=== PATIENT | female | born 1965 | race Caucasian/White ===

== ENCOUNTER 2016-11-06 15:57 | Emergency (ER) | payer SELFPAY ==
[~2016-11-06] VITALS: Ht 167.6 cm; Wt 67.5 kg
[~2016-11-06 15:57] MED LIST: DENIES MEDS
[2016-11-06 16:03] VITALS: Ht 167.6 cm; Wt 67.5 kg
[2016-11-06] MEDS ORDERED: IBUP-1542 PO (17:28)
[2016-11-06] MEDS ORDERED: CIPR500T4 PO (17:28)
[2016-11-06] MEDS ORDERED: traMADol 50 MG TAB PO ONE (17:30)
[2016-11-06] MEDS ORDERED: DIPHTH/TET/ACEL PERTUSS (ADULT) 0.5 ML VIAL IM* ONE (17:30)
[2016-11-06] MEDS ORDERED: BACITRACIN 0.9 GM OINT TOP ONE (17:30)
--- NOTE | 2016-11-06 17:44 | ERD ---
ER Documentation Chief Complaint Date/Time DATE: 11/06/16 TIME: 17:40 Chief Complaint Complains of foot pain / puncture wound since this am HPI 51-year-old female comes in with a puncture made from a piece of metal that she stepped on with that she this morning about 4 5 hours ago. She complains of a puncture wound to the bottom of her foot, tissue describes sharp pain. She states that she was able to remove the foreign body out fully. Patient states that she does not recall her last tetanus shot. ROS All systems reviewed and are negative except as per history of present illness. Medications Home Meds Active Scripts Ibuprofen* (Motrin*) 600 Mg Tab, 600 MG PO Q6, #30 TAB Prov:ASHLEY DAMON PA-C 11/06/16 Ciprofloxacin Hcl* (Ciprofloxacin Hcl*) 500 Mg Tablet, 500 MG PO BID for 3 Days , TAB Prov:ASHLEY DAMON PA-C 11/06/16 Reported Medications [Denies Meds] No Conflict Check 12/25/09 Allergies Allergies: Coded Allergies: No Known Drug Allergy (Verified Allergy, Mild, 12/25/09) PMhx/Soc Medical and Surgical Hx: pt denies Medical Hx History of Surgery: Yes (4X C SECTION) Anesthesia Reaction: No Hx Neurological Disorder: No Hx Respiratory Disorders: No Hx Cardiac Disorders: No Hx Psychiatric Problems: No Hx Miscellaneous Medical Probl: No Hx Alcohol Use: No Hx Substance Use: No Hx Tobacco Use: Yes (3 CIGARETTE DAILY) Smoking Status: Current every day smoker Physical Exam Vitals Vital Signs Date Time Temp Pulse Resp B/P Pulse Ox O2 Delivery O2 Flow Rate FiO2 11/06/16 16:03 98.3 70 20 137/67 98 Physical Exam General: Well-developed, well-nourished. The patient appears in no acute distress. HEENT: Head is normocephalic, atraumatic. No scleral icterus. Neck: Supple. Nontender. Lungs: Clear to auscultation. Normal air movement. Heart: Regular rate and rhythm. S1 and S2 are normal. No murmurs, gallops, or rubs. Abdomen: Nondistended. Extremities: No clubbing or cyanosis. Moving extremities x 4. No weakness. Neurologic: Alert and oriented 3. No focal deficits. Normal speech and gait. Skin: Of her left foot, there is a superficial opening, there is a puncture wound of approximately 45 mm, no active bleeding, no foreign body appreciated. Results 24 hrs Current Medications Medications (Trade) Dose Ordered Sig/Elvia Route PRN Reason Start Time Stop Time Status Last Admin Dose Admin Diphtheria/ Tetanus/Acell Pertussis (Adacel) 0.5 ml ONCE ONCE IM* 11/06/16 17:30 11/06/16 17:31 DC Bacitracin (Bacitracin Oint (Ud)) 1 applic ONCE ONCE TOP 11/06/16 17:30 11/06/16 17:31 DC Tramadol HCl (Ultram) 50 mg ONCE ONCE PO 11/06/16 17:30 11/06/16 17:31 DC Procedures/MDM Female comes in with a puncture wound to the bottom of the left foot, I doubt retained foreign body, doubt tendon rupture, fracture. This is a superficial injury from a piece of metal that she was able to move fully. Because the patient was wearing shoes, she will be covered with antibiotics. Departure Diagnosis: Primary Impression: Puncture wound Condition: Good Patient Instructions: Puncture Wound, Foot ASHLEY DAMON PA-C Nov 06, 2016 17:44
== END 2016-11-06 18:12 | disposition home or self-care (01) ==
LOC: FTE 15:57
DX: S91.332A Puncture wound without foreign body, left foot, initial encounter (principal); F17.210 Nicotine dependence, cigarettes, uncomplicated; W45.8XXA Other foreign body or object entering through skin, initial encounter; Y92.9 Unspecified place or not applicable
CPT/HCPCS: 90471; 90715

== ENCOUNTER 2016-11-12 13:52 | Emergency (ER) | payer MEDICAID ==
[~2016-11-12] VITALS: Ht 162.6 cm; Wt 65.0 kg
[~2016-11-12 13:52] MED LIST changes: +CIPR500T4 PO; +IBUP-1542 PO
[2016-11-12 13:53] VITALS: Ht 162.6 cm; Wt 65.0 kg
[2016-11-12] MEDS ORDERED: LIDOCAINE 1% (MDV) 20 ML INJ SC ONE (15:30)
[2016-11-12] MEDS ORDERED: CEPH-443 PO (16:02)
[2016-11-12] MEDS ORDERED: IBUP-1542 PO (16:02)
--- NOTE | 2016-11-13 10:18 | ERD ---
ER Documentation Chief Complaint Date/Time DATE: 11/13/16 TIME: 10:08 Chief Complaint wound recheck to left foot HPI 51-year-old female presented ED for wound check after she punctured the left foot 1 week ago. She stepped on a piece metal bar at home. She did pull off the bar by herself before arriving to the ED on the previous visit. She was given prescription of Cipro by the ED provider at that time. However, she did not fill her antibiotic medication because the pharmacy could not come from her Medi-Jack status. She said that she had received confirmation of her Medi-[facility] status, she will go fill her medication today. Meanwhile, patient reports pain has gotten worse on her left foot. She now has an area of redness and swelling on the dorsal aspect of the left foot. Denies fever or chills. ROS All systems reviewed and are negative except as per history of present illness. Medications Home Meds Active Scripts Cephalexin* (Keflex*) 500 Mg Capsule, 500 MG PO QID for 7 Days, CAP Prov:COCO KAUFMAN. [employer]ENDING ASSISTANT 11/12/16 Ibuprofen* (Motrin*) 600 Mg Tab, 600 MG PO Q6H Y for PAIN AND OR ELEVATED TEMP, #30 TAB Prov:COCO KAUFMAN. COMMERCIAL LENDING ASSISTANT 11/12/16 Ibuprofen* (Motrin*) 600 Mg Tab, 600 MG PO Q6, #30 TAB Prov:ASHLEY DAMON PA-C 11/06/16 Ciprofloxacin Hcl* (Ciprofloxacin Hcl*) 500 Mg Tablet, 500 MG PO BID for 3 Days , TAB Prov:ASHLEY DAMON PA-C 11/06/16 Reported Medications [Denies Meds] No Conflict Check 12/25/09 Allergies Allergies: Coded Allergies: No Known Drug Allergy (Verified Allergy, Mild, 11/12/16) PMhx/Soc History of Surgery: Yes (4X C SECTION) Anesthesia Reaction: No Hx Neurological Disorder: No Hx Respiratory Disorders: No Hx Cardiac Disorders: No Hx Psychiatric Problems: No Hx Miscellaneous Medical Probl: No Hx Alcohol Use: No Hx Substance Use: No Hx Tobacco Use: Yes (3 CIGARETTE DAILY) Smoking Status: Never smoker Physical Exam Vitals Vital Signs Date Time Temp Pulse Resp B/P Pulse Ox O2 Delivery O2 Flow Rate FiO2 11/12/16 13:53 98.1 86 18 133/80 100 Physical Exam General: Well-developed, well-nourished, conscious and coherent, in no distress Skin: Warm and dry without rash, good texture and turgor Head: Normocephalic without evidence of trauma Eyes: Sclera and conjunctivae normal; pupils equal, round, and reactive to light; extraocular movements are intact Neck: Supple without meningismus or adenopathy. Carotids are equal. Trachea midline. No bruits or JVD Chest: Normal AP diameter. Good expansion without retractions. Nontender. Lungs are clear to auscultate bilaterally with good tidal volume Heart: Regular rate and rhythm. No murmur, rub, or gallops heard Extremities: Dorsal left foot erythematous at the base of the fourth and fifth digit. There is a 1 cm fluctuant raised area. Full range of motion. Good strength bilaterally. No clubbing, cyanosis, or edema. Peripheral pulses are intact. Sensation intact Neuro: Alert and oriented 4, GCS 15. Cranial nerves grossly intact. Motor and sensory exams nonfocal. Moves all extremities. Speech clear. Gait normal Results 24 hrs Current Medications Medications (Trade) Dose Ordered Sig/Elvia Route PRN Reason Start Time Stop Time Status Last Admin Dose Admin Lidocaine (Xylocaine 1% (Mdv) 20 ml) 20 ml ONCE ONCE SC 11/12/16 15:30 11/12/16 15:31 DC Procedures/MDM Well-appearing 51-year-old male present ED with what appears to be a infected puncture wound. Procedure note: Incision and Drainage Verbal consent obtained for incision and drainage of patient's abscess. The area was prepped with Betadine. Lidocaine 1% was infiltrated for local anesthesia. After appropriate anesthesia, incision was made using #11 blade. Small amount of purulent discharge along with a 3 mm piece of white debris, and several dark colored debris was expressed from the abscess. The abscess was probed for loculation.The wound was then cleaned and dressed. Patient tolerated procedure well. Patient thinks that the white debris may be the plastic coating of the metal bar that she stepped on. I advised her to fill the Cipro prescribed her from previous visit, in addition I will prescribe Keflex for her as well. Patient appears well, stable for discharge and outpatient management. Medical decision making shared with patient and family. Education provided to patient and family. Patient and family expressed understanding of the plan. Medications on discharge: Keflex. Follow-up: Return to ED in 2 days for wound check Disclaimer: Inadvertent spelling and grammatical errors are likely due to EHR/ dictation software use and do not reflect on the overall quality of patient care. Also, please note that the electronic time recorded on this note does not necessarily reflect the actual time of the patient encounter. Departure Diagnosis: Primary Impression: Abscess Additional Impression: Infected puncture wound Condition: Stable Patient Instructions: Abscess, Incision And Drainage [facility] Usted se whitlock hecho un examen mdico de control que le indica que no est en rimma condicin que requiera tratamiento urgente en el Departamento de Emergencia. Un estudio ms profundo y el tratamiento de shanks condicin pueden esperar sin ningn riesgo hasta que usted sea atendida/o en el consultorio de shanks mdico o rimma cl chris. Es responsabilidad suya arreglar rimma dada para el seguimiento del nichole. MANEJO DE CONDICIONES NO URGENTES EN EL FUTURO 1) Si usted tiene un mdico de atencin primaria: Usted debera llamar a shanks mdico de atencin primaria antes de venir al departamento de emergencia. Despus de las horas de consultorio, shanks doctor o shanks asociado/a est disponible por telfono. El mdico o enfermero de caro en el servicio telefnico puede asesorarle por gabriel medio para atender el problema, o nichole contrario se puede programar rimma dada. 2) Si usted no tiene un mdico de atencin primaria: Llame al mdico o clnica de referencia que aparece abajo moshe las horas de consultorio para hacer rimma dada para que le vean. CLINICAS: [facility] [phone] [facility] [phone] [address] [facility] [phone] [address] [facility] [phone] [facility]. [place] [phone] [facility]. [phone] [address] Additional Instructions: Regrese a estas instalaciones dentro de [place] para un examen de seguimiento.Regrese antes si shanks condicin se empeora. COCO KAUFMAN. PAPO Nov 13, 2016 10:18
== END 2016-11-12 16:10 | disposition home or self-care (01) ==
LOC: FTE 13:52
DX: L02.612 Cutaneous abscess of left foot (principal); F17.210 Nicotine dependence, cigarettes, uncomplicated; W26.8XXD Contact with other sharp object(s), not elsewhere classified, subsequent encounter
CPT/HCPCS: 10060; Z7502; Z7610

== ENCOUNTER 2017-10-19 16:41 | Emergency (ER) | END 2017-10-19 19:22 | disposition home or self-care (01) ==